=== PATIENT | male | born 1980 | race Two or more races ===

== ENCOUNTER → 2020-03-22 | Outpatient (CLI) | payer OTHER ==
[2020-03-22 14:02] LABS: Urine WBC None Seen /hpf (0 - 3)
[2020-03-22 14:05] LABS: Basophils # (auto) 0.1 10 ^3/uL (0-0.2); Eosinophils # (auto) 0.3 10 ^3/uL (0-0.8); Eosinophils % (auto) 3.7 % (0.0-7.0); Hematocrit 45.6 % (41.0-53.0); Lymphocytes # (auto) 2.6 10 ^3/uL (0.4-5.4); Lymphocytes % (auto) 28.7 % (10.0-50.0); Mean Corpuscular Hemoglobin 30.9 pg (28.0-32.0); Mean Corpuscular Volume 88.3 fL (80.0-100.0); Monocytes # (auto) 0.8 10 ^3/uL (0-1.3); Monocytes % (auto) 8.8 % (0.0-12.0); Neutrophils # (auto) 5.2 10 ^3/uL (1.6-8.6); Neutrophils % (auto) 57.8 % (37.0-80.0); Platelet Count (auto) 225 10^3/uL (140-450); Red Blood Cells 5.17 10^6/uL (4.5-5.90); Red Cell Distribution Width 12.8 % (11.8-14.3); White Blood Cell 8.9 10^3/uL (4.4-10.8)
[2020-03-22 14:12] LABS: Urine Bacteria NONE SEEN /hpf (None Seen); Urine Blood Negative /uL (Negative); Urine Specific Gravity 1.014 (1.001-1.035)
[2020-03-22 14:53] LABS: Calcium 8.6 mg/dL (8.5-10.1); Potassium 3.8 mmol/L (3.5-5.1)
[2020-03-22 14:57] LABS: BUN/Creatinine Ratio 12.3; Bilirubin, Total 0.4 mg/dL (0.2-1.0); Total Protein 7.7 g/dL (6.4-8.2)
== END | disposition home or self-care (01) ==
LOC: LAB 13:48
PROVIDERS: ATTEND Student in an Organized Health Care Education/Training Program
DX: N52.9 Male erectile dysfunction, unspecified (principal); R73.9 Hyperglycemia, unspecified; R35.0 Frequency of micturition; R35.1 Nocturia
CPT/HCPCS: 36415; 80053; 80061; 81001; 83036; 84153; 84403; 84443; 85025

== ENCOUNTER → 2021-04-22 | Outpatient (CLI) | payer OTHER ==
[2021-04-22 11:30] LABS: Basophils # (auto) 0 10 ^3/uL (0-0.2); Basophils % (auto) 0.6 % (0.0-2.0); Eosinophils # (auto) 0.2 10 ^3/uL (0-0.8); Eosinophils % (auto) 2.9 % (0.0-7.0); Hematocrit 43.1 % (41.0-53.0); Hemoglobin 14.6 g/dL (13.5-17.5); Lymphocytes % (auto) 26.6 % (10.0-50.0); Mean Corpuscular Hemoglobin 30.2 pg (28.0-32.0); Mean Corpuscular Hgb Conc. 33.9 g/dL (32.0-36.0); Mean Corpuscular Volume 89.1 fL (80.0-100.0); Monocytes # (auto) 0.7 10 ^3/uL (0-1.3); Monocytes % (auto) 9.4 % (0.0-12.0); Neutrophils # (auto) 4.6 10 ^3/uL (1.6-8.6); Neutrophils % (auto) 60.5 % (37.0-80.0); Red Blood Cells 4.84 10^6/uL (4.5-5.90); Red Cell Distribution Width 14.1 % (11.8-14.3); White Blood Cell 7.5 10^3/uL (4.4-10.8)
[2021-04-22 11:39] LABS: Urine Blood Negative /uL (Negative); Urine Specific Gravity 1.021 (1.001-1.035)
[2021-04-22 12:47] LABS: Prostate Specific Antigen 0.96 ng/mL (0.0-4.0)
[2021-04-22 14:06] LABS: Albumin 3.6 g/dL (3.4-5.0); Potassium 4.2 mmol/L (3.5-5.1)
[2021-04-22 14:13] LABS: BUN/Creatinine Ratio 17.9; Bilirubin, Total 0.4 mg/dL (0.2-1.0); CRP High Sensitivity 0.36 mg/dL (< 0.3); Calcium 8.4 mg/dL (8.5-10.1); Total Protein 6.8 g/dL (6.4-8.2)
[2021-04-23 11:07] LABS: Free T4 (Free Thyroxine) 1.2 ng/dL (0.89-1.76)
== END | disposition home or self-care (01) ==
LOC: LAB 09:35
PROVIDERS: ATTEND Internal Medicine
DX: C61 Malignant neoplasm of prostate (principal); E11.9 Type 2 diabetes mellitus without complications; D51.3 Other dietary vitamin B12 deficiency anemia; D64.9 Anemia, unspecified; E55.9 Vitamin D deficiency, unspecified; I10 Essential (primary) hypertension; R00.2 Palpitations; R53.1 Weakness; R30.0 Dysuria
CPT/HCPCS: 36415; 80053; 80061; 81003; 82306; 82607; 83036; 84153; 84403; 84439; 84443; 85025; 85652; 86141

== ENCOUNTER → 2021-04-24 | Outpatient (CLI) | payer OTHER ==
[~2021-04-24] VITALS: Ht 177.8 cm; Wt 99.8 kg
== END | disposition home or self-care (01) ==
LOC: Rad HDHVI 13:06
PROVIDERS: ATTEND Internal Medicine
DX: I10 Essential (primary) hypertension (principal); R06.02 Shortness of breath; R00.2 Palpitations; R07.9 Chest pain, unspecified
CPT/HCPCS: 78452; 93017; 96374; A9500

== ENCOUNTER → 2021-04-28 | Outpatient (CLI) | payer OTHER | END | disposition home or self-care (01) | LOC: Rad HDHVI 16:10 | PROVIDERS: ATTEND Internal Medicine | DX: I51.7 Cardiomegaly (principal) | CPT/HCPCS: 93306 ==

== ENCOUNTER → 2022-11-24 | Outpatient (CLI) | payer MEDICAID ==
[~2022-11-24] MED LIST: ALBUTEROL SULF 2.5 MG/0.5ML(0.5%) NEB SOLN ONE
== END | disposition home or self-care (01) ==
LOC: RT 10:41
PROVIDERS: ATTEND Internal Medicine Pulmonary Disease
DX: J45.40 Moderate persistent asthma, uncomplicated (principal); J44.9 Chronic obstructive pulmonary disease, unspecified; R06.09 Other forms of dyspnea
CPT/HCPCS: 94060; 94727; 94729

== ENCOUNTER 2023-12-18 21:49 | Inpatient (IN) | payer MEDICAID ==
[~2023-12-18] VITALS: Ht 177.8 cm; Wt 116.8 kg
[2023-12-18 22:33] LABS: Basophils # (auto) 0.1 10 ^3/uL (0-0.2); Basophils % (auto) 0.7 % (0.0-2.0); Eosinophils # (auto) 0.3 10 ^3/uL (0-0.8); Eosinophils % (auto) 2.4 % (0.0-7.0); Hematocrit 48.2 % (41.0-53.0); Hemoglobin 16.7 g/dL (13.5-17.5); Lymphocytes # (auto) 3.4 10 ^3/uL (0.4-5.4); Lymphocytes % (auto) 28.7 % (10.0-50.0); Mean Corpuscular Hemoglobin 30.3 pg (28.0-32.0); Mean Corpuscular Hgb Conc. 34.6 g/dL (32.0-36.0); Mean Corpuscular Volume 87.7 fL (80.0-100.0); Monocytes # (auto) 0.9 10 ^3/uL (0-1.3); Monocytes % (auto) 7.8 % (0.0-12.0); Neutrophils # (auto) 7.2 10 ^3/uL (1.6-8.6); Neutrophils % (auto) 60.4 % (37.0-80.0); Nucleated Red Blood Cells % 0.1 %; Platelet Count (auto) 227 10^3/uL (140-450); Red Cell Distribution Width 13.5 % (11.8-14.3)
[2023-12-18 22:37] LABS: Chloride 109 mmol/L (98-107); Potassium 4.1 mmol/L (3.5-5.1); Sodium 141 mmol/L (136-145)
[2023-12-18 22:38] LABS: Anion Gap 9 (5-15); Calcium 9.7 mg/dL (8.7-10.4); Carbon Dioxide 23 mmol/L (20-31)
[2023-12-18 22:43] LABS: BUN/Creatinine Ratio 11.3 (10.0-20.0); Blood Urea Nitrogen 17 mg/dL (9-23); Glucose 133 mg/dL (74-106)
[2023-12-19] VITALS (7 sets, daily range): BP systolic 126–130; BP diastolic 79–83; PULSE 69–85; RESP 14–20; TEMP 97.7–98.1; O2SAT 96–100
[2023-12-19] MEDS ORDERED: MORPHINE SULFATE INJ 2 MG/ml SYRG IV PRN ×2 (09:45)
[2023-12-19] MEDS ORDERED: NITROGLYCERIN 0.4 MG SL TAB SL PRN (09:45)
[2023-12-19] MEDS ORDERED: ACETAMINOPHEN 325 MG TAB PO PRN (09:45)
[2023-12-19] MEDS ORDERED: ONDANSETRON HCL 4 MG/2 ML VIAL IV PRN (09:45)
[2023-12-19] MEDS ORDERED: HYDROcodone-ACET 5/325MG TAB PO PRN (09:45)
[2023-12-19 10:15] LABS: Basophils # (auto) 0 10 ^3/uL (0-0.2); Basophils % (auto) 0.5 % (0.0-2.0); Eosinophils # (auto) 0.3 10 ^3/uL (0-0.8); Eosinophils % (auto) 3.1 % (0.0-7.0); Hematocrit 47.6 % (41.0-53.0); Hemoglobin 16.3 g/dL (13.5-17.5); Lymphocytes # (auto) 2.5 10 ^3/uL (0.4-5.4); Lymphocytes % (auto) 24.5 % (10.0-50.0); Mean Corpuscular Hemoglobin 30.3 pg (28.0-32.0); Mean Corpuscular Hgb Conc. 34.3 g/dL (32.0-36.0); Mean Corpuscular Volume 88.4 fL (80.0-100.0); Monocytes % (auto) 9.8 % (0.0-12.0); Neutrophils # (auto) 6.3 10 ^3/uL (1.6-8.6); Neutrophils % (auto) 62.1 % (37.0-80.0); Platelet Count (auto) 207 10^3/uL (140-450); Red Blood Cells 5.38 10^6/uL (4.5-5.90); Red Cell Distribution Width 13.8 % (11.8-14.3); White Blood Cell 10.2 10^3/uL (4.4-10.8)
[2023-12-19] MEDS: SODIUM CHLORIDE 0.9% 1,000 ML IV SCH (10:25)
[2023-12-19] MEDS: ENOXAPARIN SOD 40 MG/0.4 ML SYRINGE SC SCH (10:31)
[2023-12-19 10:36] LABS: Alanine Aminotransferase 36 U/L (7-40); Albumin 4.5 g/dL (3.2-4.8); Alkaline Phosphatase 87 U/L (46-116); Anion Gap 7 (5-15); Aspartate Aminotransferase 16 U/L (13-40); BUN/Creatinine Ratio 11.4 (10.0-20.0); Bilirubin, Total 0.7 mg/dL (0.2-1.0); Blood Urea Nitrogen 14 mg/dL (9-23); Calcium 9.8 mg/dL (8.7-10.4); Carbon Dioxide 27 mmol/L (20-31); Chloride 108 mmol/L (98-107); Cholesterol 230 mg/dL (< 200); Glucose 95 mg/dL (74-106); HDL Cholesterol 45 mg/dL (40-59); LDL Cholesterol 151 mg/dL (< 100); Potassium 3.9 mmol/L (3.5-5.1); Sodium 142 mmol/L (136-145); Total Protein 7.5 g/dL (5.7-8.2); Triglycerides 223 mg/dL (< 150)
[2023-12-19] MEDS ORDERED: ALBUTEROL SULF 2.5 MG/0.5ML(0.5%) NEB SOLN NEB PRN (10:45)
[2023-12-19 11:27] LABS: Urine Bacteria None Seen /hpf (None Seen)
[2023-12-19 11:49] LABS: Urine Blood Negative /uL (Negative); Urine Clarity Clear (Clear); Urine Color Yellow (Yellow); Urine Protein, UAD Negative (Negative); Urine Specific Gravity 1.026 (1.001-1.035); Urine Urobilinogen Normal (Negative); Urine WBC 1 /hpf (0 - 3); Urine pH 5.5 (5.0-9.0)
[2023-12-19 11:50] LABS: Amphetamine Screen, Urine Neg (NEGATIVE); Barbiturate Scree,Urine Neg (NEGATIVE); Benzodiazephine Screen, Urine Neg (NEGATIVE); Cannabinoid Screen, Urine Neg (NEGATIVE); Cocaine Screen, Urine Neg (NEGATIVE); Opiate Scree,Urine Neg (NEGATIVE); Phencyclidine Screen, Urine Neg (NEGATIVE)
[2023-12-19] MEDS: ASPirin 81 mg TAB PO ONE (12:22)
[2023-12-19] MEDS: ATORVASTATIN 20 MG TAB PO SCH (22:24)
[2023-12-20] VITALS (7 sets, daily range): BP systolic 101–135; BP diastolic 66–87; PULSE 71–84; RESP 18–20; TEMP 97.1–98.3; O2SAT 95–98
[2023-12-20] MEDS ORDERED: MELATONIN 5 MG TAB PO ONE (01:00)
[2023-12-20 08:31] LABS: Hepatitis B Surface Antigen Negative (Negative)
[2023-12-20 08:53] LABS: Hepatitis C Antibody Negative (Negative)
[2023-12-20] MEDS: ASPirin 81 mg TAB PO SCH (10:32)
== END 2023-12-20 16:15 | disposition home or self-care (01) | DRG 203 ==
LOC: ER 21:49 → TELE 12-19 09:41 → TELE-CENTR 12-19 09:43
PROVIDERS: ADMIT Registered Nurse; ATTEND Hospitalist
DX: R07.89 Other chest pain (principal); D72.829 Elevated white blood cell count, unspecified; E89.0 Postprocedural hypothyroidism; J45.909 Unspecified asthma, uncomplicated; E66.9 Obesity, unspecified; N18.31 Chronic kidney disease, stage 3a; Z88.6 Allergy status to analgesic agent; Z68.37 Body mass index [BMI] 37.0-37.9, adult
CPT/HCPCS: 36415; 71046; 80048; 80053; 80061; 80307; 81001; 83036; 84443; 84484; 85025; 86803; 87040; 87081; 87086; 87340; 93005; 93306; 99291; G0378

== ENCOUNTER 2023-12-29 06:21 | Day surgery (SDC) | payer MEDICAID ==
[2023-12-27 16:08] LABS: Basophils # (auto) 0.1 10 ^3/uL (0-0.2); Basophils % (auto) 1.1 % (0.0-2.0); Eosinophils # (auto) 0.4 10 ^3/uL (0-0.8); Hematocrit 44.8 % (41.0-53.0); Hemoglobin 16.2 g/dL (13.5-17.5); Lymphocytes % (auto) 32.4 % (10.0-50.0); Mean Corpuscular Hemoglobin 31.5 pg (28.0-32.0); Mean Corpuscular Hgb Conc. 36.1 g/dL (32.0-36.0); Mean Corpuscular Volume 87.3 fL (80.0-100.0); Monocytes # (auto) 0.9 10 ^3/uL (0-1.3); Monocytes % (auto) 9.8 % (0.0-12.0); Neutrophils # (auto) 4.9 10 ^3/uL (1.6-8.6); Neutrophils % (auto) 52.7 % (37.0-80.0); Nucleated Red Blood Cells % 0.1 %; Platelet Count (auto) 239 10^3/uL (140-450); Red Blood Cells 5.13 10^6/uL (4.5-5.90); Red Cell Distribution Width 13.6 % (11.8-14.3); White Blood Cell 9.3 10^3/uL (4.4-10.8)
[2023-12-27 16:27] LABS: Partial Thromboplastin Time 27.1 SEC (24.5-34.5); Prothrombin Time 10.6 sec (9.3-11.8)
[2023-12-27 16:32] LABS: Urine Bacteria FEW /hpf (None Seen); Urine Blood Negative /uL (Negative); Urine Clarity Clear (Clear); Urine Color Yellow (Yellow); Urine Mucus FEW (None Seen); Urine Protein, UAD Negative (Negative); Urine Specific Gravity 1.023 (1.001-1.035); Urine Squamous Epithelial Cell None Seen /hpf (<5); Urine Urobilinogen Normal (Negative); Urine WBC <1 /hpf (0 - 3); Urine pH 5.5 (5.0-9.0)
[2023-12-27 17:02] LABS: Alanine Aminotransferase 33 U/L (7-40); Albumin 4.7 g/dL (3.2-4.8); Alkaline Phosphatase 88 U/L (46-116); Anion Gap 6 (5-15); Aspartate Aminotransferase 16 U/L (13-40); BUN/Creatinine Ratio 13.3 (10.0-20.0); Bilirubin, Total 0.4 mg/dL (0.2-1.0); Blood Urea Nitrogen 15 mg/dL (9-23); Calcium 9.8 mg/dL (8.7-10.4); Carbon Dioxide 27 mmol/L (20-31); Chloride 107 mmol/L (98-107); Glucose 89 mg/dL (74-106); Potassium 4.3 mmol/L (3.5-5.1); Sodium 140 mmol/L (136-145); Total Protein 7.4 g/dL (5.7-8.2)
[~2023-12-29] VITALS: Ht 177.8 cm; Wt 111.1 kg
[~2023-12-29 06:21] MED LIST changes: +ALBU1NEB5 IN; -ALBUTEROL SULF 2.5 MG/0.5ML(0.5%) NEB SOLN ONE
[2023-12-29] MEDS: LIDOCAINE HCL 1%(LOCAL ANESTH.) INJ 50ML MDV IJ ONE (07:40)
[2023-12-29] MEDS ORDERED: LIDOCAINE W/ EPINEPHRINE 1% 20ML VIAL ONE (07:43)
[2023-12-29] MEDS ORDERED: BUPIVACAINE HCL 0.25% P/F 10 ML VIAL ONE (07:43)
[2023-12-29] MEDS ORDERED: ceFAZolin 2 GM/D5W100ml 100 ML IV ONE (07:55)
[2023-12-29] MEDS ORDERED: HYDROmorphone HCL 2 MG/ML VL/or syr ONE (08:01)
[2023-12-29] MEDS ORDERED: MIDAZOLAM HCL 2MG/2ML 2ml VIAL (1mg/ml) ONE (08:01)
[2023-12-29] MEDS ORDERED: KETAMINE 50mg/ML 1ml syringe ONE (08:01)
[2023-12-29] MEDS ORDERED: fentaNYL CITRATE 100 MCG/2 ML VL ONE (08:01)
[2023-12-29] MEDS ORDERED: LIDOCAINE 2% (LOCAL ANESTH.) PF 5ml SDV ONE (08:02)
[2023-12-29] MEDS ORDERED: HYDROCORTISONE SOD SUCC 100 MG/2ML INJ VIAL ONE (08:02)
[2023-12-29] MEDS ORDERED: PROPOFOL 10 MG/ML 20 ML IV ONE (08:02)
[2023-12-29] MEDS ORDERED: GLYCOPYRROLATE 0.2 MG/ML 1ML VIAL ONE (08:02)
[2023-12-29] MEDS ORDERED: ONDANSETRON HCL 4 MG/2 ML VIAL ONE (08:02)
[2023-12-29] MEDS ORDERED: ROCURONIUM 10MG/ML 10ML VIAL IV ONE (08:02)
[2023-12-29 08:28] VITALS: PULSE 116; RESP 16; O2SAT 99
--- NOTE | 2023-12-29 08:35 | DVHOP ---
DATE OF SURGERY: 12/29/2023 PREOPERATIVE DIAGNOSIS: Ventral incisional hernias. POSTOPERATIVE DIAGNOSIS: Ventral incisional hernias. SURGEON: Sanjiv Pryor MD [employer] PREPARATION SUPERVISOR: Maciel Galan NP ANESTHESIA: General endotracheal. ANESTHESIOLOGIST: Isha Palencia MD PROCEDURE: Repair of two incisional abdominal wall hernias without mesh. DESCRIPTION OF PROCEDURE: Under general anesthesia with the patient's skin prepped and draped, the incisions were made over the visible palpable bulges in the abdominal wall. Scar tissue was divided. Hernia sac was excised and the fascial defect was approximated using nonabsorbable sutures. Wound was irrigated. Hemostasis was accomplished. The patient's wounds were then approximated using Monocryl sutures, Dermabond glue and Steri-Strips. The patient remained stable throughout the procedure, left the operating room following an accurate needle and sponge count. His mother, Connie Kaiser, was thoroughly informed at [phone]. Sanjiv Pryor MD PF TID: [id number] RECEIPT: [id number]
[2023-12-29 08:38] VITALS: PULSE 98; RESP 14; O2SAT 99
[2023-12-29] MEDS ORDERED: ONDANSETRON HCL 4 MG/2 ML VIAL IV ONE (08:45)
[2023-12-29] MEDS ORDERED: ALBUTEROL SULF 2.5 MG/0.5ML(0.5%) NEB SOLN NEB PRN (08:45)
[2023-12-29] MEDS: HYDROmorphone HCL 2 MG/ML VL/or syr IV PRN (09:08)
[2023-12-29] MEDS ORDERED: SUGAMMADEX 200mg/2ml Vial (100MG/ML) IV ONE (09:08)
[2023-12-29 09:28] VITALS: BP 150/92; PULSE 83; RESP 16; O2SAT 95
== END 2023-12-29 09:48 | disposition home or self-care (01) ==
LOC: SUR 06:21
PROVIDERS: ATTEND Surgery
DX: K43.2 Incisional hernia without obstruction or gangrene (principal); K21.9 Gastro-esophageal reflux disease without esophagitis; J45.909 Unspecified asthma, uncomplicated; Z90.89 Acquired absence of other organs; Z88.8 Allergy status to other drugs, medicaments and biological substances; Z87.891 Personal history of nicotine dependence
CPT/HCPCS: 36415; 49593; 80053; 81001; 85025; 85610; 85730; 86850; 86900; 86901; 87086; 88302; J1171; J1720; J2003; J2250; J2405; J2704; J3010; J3490

== ENCOUNTER → 2024-02-14 | Outpatient (CLI) | payer MEDICAID ==
[~2024-02-14] MED LIST changes: +ALBUTEROL SULF 2.5 MG/0.5ML(0.5%) NEB SOLN ONE
== END | disposition home or self-care (01) ==
LOC: RT 10:38
PROVIDERS: ATTEND Internal Medicine Pulmonary Disease
DX: R06.09 Other forms of dyspnea (principal)
CPT/HCPCS: 94060; 94727; 94729

== ENCOUNTER 2024-10-16 15:43 | Outpatient (CLI) | payer MEDICAID ==
[~2024-10-16 15:43] MED LIST changes: -ALBUTEROL SULF 2.5 MG/0.5ML(0.5%) NEB SOLN ONE
[2024-10-16 16:09] LABS: Hematocrit 46.7 % (41.0-53.0); Hemoglobin 16.3 g/dL (13.5-17.5); Mean Corpuscular Hemoglobin 30.3 pg (28.0-32.0); Mean Corpuscular Volume 86.6 fL (80.0-100.0); Nucleated Red Blood Cells % 0.0 %
[2024-10-16 16:46] LABS: Alanine Aminotransferase 38 U/L (7-40); Albumin 4.7 g/dL (3.2-4.8); Alkaline Phosphatase 68 U/L (46-116); Anion Gap 9 (5-15); BUN/Creatinine Ratio 10.1 (10.0-20.0); Blood Urea Nitrogen 11 mg/dL (9-23); Calcium 9.4 mg/dL (8.7-10.4); Carbon Dioxide 27 mmol/L (20-31); Chloride 105 mmol/L (98-107); Glucose 84 mg/dL (74-106); Potassium 4.0 mmol/L (3.5-5.1); Sodium 141 mmol/L (136-145); Total Protein 7.4 g/dL (5.7-8.2)
[2024-10-16 16:47] LABS: Bilirubin, Total 0.5 mg/dL (0.2-1.0)
== END 2024-10-16 17:00 | disposition home or self-care (01) ==
LOC: LAB 15:43
PROVIDERS: ATTEND Internal Medicine Pulmonary Disease
DX: E66.9 Obesity, unspecified (principal)
CPT/HCPCS: 36415; 80053; 85025